=== PATIENT | female | born 1970 | race Caucasian/White ===

== ENCOUNTER 2022-07-20 01:43 | Day surgery (SDC) | payer BC, SELFPAY ==
[2022-07-13 12:08] VITALS: BMI 40.3
--- NOTE | 2022-07-13 12:12 | PC.NURSE ---
Report to the Outpatient Waiting Room, entrance under the green pavilion located off [facility], at time 11:30 on date 07/20/22. Planned Procedure Time: 1:30. Time changes happen often and if your time is changed the preop area will call you the afternoon before. - You and your visitor will be asked to self-screen and do not enter if you have any COVID symptoms. - A mask is optional within the hospital at this time. Patients may have clear liquids (water, carbonated beverages, clear teas, apple juice) until 3 hours prior to surgery (10:30) with a maximum of 20 ounces. - No food from midnight until time of surgery Take the following medications with a SIP of water the morning of surgery: NONE DO NOT STOP ANY OF YOUR OTHER PRESCRIPTION MEDICATIONS PRIOR TO SURGERY EXCEPT THE FOLLOWING Medications to discontinue per physician: VITAMINS/SUPPLEMENTS Date to take last dose: 07/16/22 Please no make-up, nail sammarinese, hairspray, perfume, deodorant, or body powder the day of surgery. No jewelry (including any body piercings) or valuables the day of surgery, leave them at home. Please take a shower or bath the night before, or the morning of, surgery with an antibacterial soap. Wear comfortable, loose fitting clothing. - Jewelry must be removed prior to entering the operating room. Rings and piercings that are not removed may be cut off. - The hospital will not accept responsibility for valuables. - Please leave all valuables, including medications, at home the day of surgery. If you are going home after surgery, a licensed fire truck driver must drive you home. - NO public transportation without another adult if you receive anesthesia. - We recommend that an adult stay with you for 24 hours following discharge. - We also recommend that you do not drive, make important decision, drink alcoholic beverages, or take any drugs that were not prescribed by your health care provider for at least 24 hours after your discharge time. Follow any additional instructions given to you from your surgeon. If you or anyone in your household have experienced Covid symptoms in the past week, please notify your surgeon or the nurse liaison at the phone number below for possible testing. Telephone instructions given to PT - JOCELIN GAYTAN and asked if any additional questions and then verbalized understanding. Patient advised to call surgeon office or pre surgery nurse liaison [phone] if any additional questions.
--- NOTE | 2022-07-20 08:10 | PM.IMHP ---
H&P: HPI History of Present Illness Date/Time: 07/20/22 08:10 52-year-old female presents for evaluation of irregular ultrasound. Was seen in May for her annual exam and was found to have left adnexal tenderness. Ultrasound was performed and only abnormality being of a thickened irregularly shaped endometrial cavity. She has had no bleeding or pain, and she has had an endometrial ablation in the past so the definition of what is normal on ultrasound is unclear. However with what is seen it is worthy of investigation. Chief Complaint: Endometrial thickness on ultrasound Review of Systems Review of Systems: All systems reviewed & are unremarkable except as noted in HPI and below PMFSH Past Medical History Medical History High cholesterol Screening mammogram, encounter for Surgical History Surgical History Delivery by section (02/02/94) primary c/s Delivery by section (03/12/97) rpt c/s H/O tubal ligation (04/11/97) History of gynecological procedure (08/04/09) Novasure Ablation History of hysteroscopy (06/09/09) Hscope D&C Hx of ovarian cystectomy (02/14/06) LAPAROSCOPIC R OVARIAN CYSTECTOMY Family History Family History Father Hypertension Family history of heart disease in male family member before age 55 Acute myocardial infarction Mother Family history of malignant neoplasm of uterus Family history of type 2 diabetes mellitus Family history of atrial fibrillation Sibling Acute myocardial infarction sister Social History Social History Smoking status: Never smoker Alcohol intake: current Drinks per week: 2 Substance use: never Substance use type: does not use Living arrangements: with family Additional living arrangements comments: Occupation/Education: occupation 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 Gender identity (if verbalized by the patient): Female Sexual Orientation (if Verbalized by the Patient): Straight or Heterosexual Spiritual care concerns: No Meds Home Medications and Allergies Home Medications Medication Instructions Recorded Confirmed Type rosuvastatin 20 mg tablet 20 mg PO DAILY 06/04/22 07/13/22 History coQ10 (ubiquinol) 100 mg capsule 100 mg PO DAILY 07/13/22 07/13/22 History multivitamin 1 tablet PO DAILY 07/13/22 07/13/22 History Allergies Allergy/AdvReac Type Severity Reaction Status Date / Time Penicillins Allergy Unknown Unknown Verified 07/13/22 12:07 Exam Const: General: cooperative, healthy appearing and comfortable Resp: Effort & Inspection: normal respiratory effort Auscultation: clear to auscultation bilaterally Cardio: Rate: regular rate Rhythm: regular rhythm GI: Inspection: normal to inspection Auscultation: normal bowel sounds : External Female Exam: normal external appearance Speculum Exam - Vagina: normal appearance of the vagina Speculum Exam - Cervix: normal appearance of the cervix Bimanual exam- vagina & uterus: normal bimanual exam Bimanual Exam- Adnexa, other: normal adnexae Assessment and Plan Assessment and plan (1) Endometrial thickening on ultrasound: Code(s): R93.89 - Abnormal findings on diagnostic imaging of other specified body structures Status: Acute Plan 1. Hysteroscopy with tissue sampling.
--- NOTE | 2022-07-20 08:12 | WPDHPUPDATE1 ---
History and Physical Update Update Date/Time: 07/20/22 08:12 History and Physical has been reviewed, including an updated exam of the patient. There are NO changes in the patient's condition. Risks, benefits, and alternatives have been discussed and questions answered. Patient agrees to proceed with procedure.
[2022-07-20] MEDS: LACTATED RINGERS 1,000 ML 30 ML IV CONT (11:50)
--- NOTE | 2022-07-20 11:52 | P.PNAN_ITS ---
Anes - Initial Pre Proc Eval Procedure: Operation Date: 07/20/22 13:15 Proposed Procedures p Hysteroscopy, Dilation and Curettage - Adebayo Mckeon MD Date/Time: 07/20/22 11:52 Surgeon: Adebayo Mckeon MD Pre Op Diagnosis: endometrial thickening Patient Data Age: 52 Gender: F Height: 1.68 m Weight: 113.4 kg Allergies Allergy/AdvReac Type Severity Reaction Status Date / Time Penicillins Allergy Unknown Unknown Verified 07/20/22 11:33 Home Medications Medication Instructions Recorded Confirmed Type rosuvastatin 20 mg tablet 20 mg PO DAILY 06/04/22 07/20/22 History coQ10 (ubiquinol) 100 mg capsule 100 mg PO DAILY 07/13/22 07/20/22 History multivitamin 1 tablet PO DAILY 07/13/22 07/20/22 History Patient hx anesthesia problems: post op nausea/vomiting Family hx anesthesia problems: none Results Review: All pre-operative results and documents have been reviewed as part of the pre- operative evaluation. [facility] Past Medical History Medical History High cholesterol Screening mammogram, encounter for Surgical History Surgical History Delivery by section (02/02/94) primary c/s Delivery by section (03/12/97) rpt c/s H/O tubal ligation (04/11/97) History of gynecological procedure (08/04/09) Novasure Ablation History of hysteroscopy (06/09/09) Hscope D&C Hx of ovarian cystectomy (02/14/06) LAPAROSCOPIC R OVARIAN CYSTECTOMY Family History Family History Father Hypertension Family history of heart disease in male family member before age 55 Acute myocardial infarction Mother Family history of malignant neoplasm of uterus Family history of type 2 diabetes mellitus Family history of atrial fibrillation Sibling Acute myocardial infarction sister Social History Social History Smoking status: Never smoker Alcohol intake: current Drinks per week: 2 Substance use: never Substance use type: does not use Living arrangements: with family Additional living arrangements comments: Occupation/Education: occupation 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 Gender identity (if verbalized by the patient): Female Sexual Orientation (if Verbalized by the Patient): Straight or Heterosexual Spiritual care concerns: No Anes - Eval Final PreProcedure Day of Procedure 07/20/22 11:52 Patient weight: morbidly obese Heart: regular rate and rhythm Lungs: clear to auscultation Airway: Mallampati scale class II Neurological: alert and oriented Last oral intake: >/= 8 hours ASA classification: III Emergent: no Anesthetic plan: proceed Anesthesia type and monitoring: general GIVS and standard monitoring Results Review: All pre-operative results and documents have been reviewed as part of the pre- operative evaluation. Informed Consent: The patient's anesthetic plan and its attendant risks and benefits were discussed with the patient/family/POA. Questions were solicited and answers provided to the satisfaction of the patient/family/POA.
[2022-07-20 11:55] VITALS: BP 150/89; PULSE 72; RESP 16; TEMP 36.3; O2SAT 100
[2022-07-20 12:00] LABS: Hematocrit 40.3 % (37.0-47.0); Hemoglobin 13.2 g/dL (12.0-15.0); Mean Corpuscular HGB Conc 32.8 g/dl (32-36); Mean Corpuscular Volume 85.6 fl (80-100); Mean Platelet Volume 11.2 fl (7.4-10.4); Platelet Count Result 172 k/mm3 (150-375); Red Blood Count 4.71 M/mm3 (4.2-5.4); Red Cell Distribution Width 14.5 % (11.5-14.5); White Blood Count 5.3 K/mm3 (4.5-10.0)
[2022-07-20] MEDS: SCOPOLAMINE 1.5 MG PATCH TRANSDERM (12:00)
[2022-07-20] MEDS: ceFAZolin 2 GM/D5W 50 ML 2 GM/50 ML BAG IVPB (12:54)
[2022-07-20] MEDS: LIDO 1%/EPINEPHRINE 1:100,000 20 ML VIAL 10 ML INFILTRATE (13:04)
--- NOTE | 2022-07-20 13:18 | W.PM.PROC2 ---
Procedure Note - Detailed Date of Procedure 07/20/22 Pre-op Diagnosis endometrial thickening Post-op Diagnosis Same Procedure Performed 1. Hysteroscopy with uterine curettings Surgeon Adebayo Mckeon MD Anesthesia MAC Findings Upon dilating uterine cervix mucus and old blood drained. Actual hysteroscopic exam revealed scarred atrophic endometrial cavity. Description of Procedure Patient prepped draped usual manner for this procedure. Anterior lip the cervix rest single-tooth tenaculum and the cervix was dilated with mucus and old blood draining, approximate 10cc. Hysteroscope was then placed with endometrial cavity evaluated and no abnormalities noted other than scarring and adhesions. Curettings were then obtained with the minimal amount of tissue removed. This was done under direct visualization with integrity of the uterus intact. At this point there was no significant bleeding and the patient was sent to recovery room in stable condition. Estimated Blood Loss 10 Drains No Packing No Pathology Yes Complications No immediate complications Condition Stable Disposition PACU [facility] Billing Surgery - Charge Forward: Surgery Billing
[2022-07-20 13:24] VITALS: BP 181/97; PULSE 75; RESP 20; O2SAT 98
[2022-07-20 13:55] VITALS: BP 194/93; PULSE 78; RESP 16
[2022-07-20] MEDS: oxyCODONE HCL (*CRX) 5 MG TAB IR PO (14:03)
[2022-07-20] MEDS: ONDANSETRON INJ 4 MG/2 ML VIAL IV PUSH (14:15)
[2022-07-20 14:25] VITALS: BP 186/89; PULSE 61; RESP 20
[2022-07-20 14:55] VITALS: BP 170/75; PULSE 61; RESP 18
[2022-07-20 15:08] VITALS: BP 165/64; PULSE 59; RESP 20
== END 2022-07-20 15:16 | disposition home or self-care (01) ==
PROVIDERS: Visit Provider Obstetrics & Gynecology
PROC: 0U5B8ZZ Destruction of Endometrium, Via Natural or Artificial Opening Endoscopic (ICD-10-PCS; CPT 58563; principal; 2022-07-20 13:15)
DX: R93.89 Abnormal findings on diagnostic imaging of other specified body structures (principal); E78.00 Pure hypercholesterolemia, unspecified; E66.01 Morbid (severe) obesity due to excess calories; Z68.41 Body mass index [BMI] 40.0-44.9, adult
CPT/HCPCS: 58558; 36415; 85027; 88305; A9270; J0690; J2405; J2704; J3010; J7120